=== PATIENT | female | born 1965 | race Caucasian/White ===

== ENCOUNTER 2023-12-21 16:52 | Outpatient (CLI) | payer MEDICAID ==
[2023-12-21 17:04] LABS: BASOPHILS # (AUTO) 0.1 10^3/uL (0.0-0.1); BASOPHILS % (AUTO) 0.8 %; EOSINOPHILS # (AUTO) 0.3 10^3/uL (0.0-0.7); EOSINOPHILS % (AUTO) 2.9 %; HCT - HEMATOCRIT 38.8 % (37.0-47.0); HGB - HEMOGLOBIN 12.5 g/dL (12.0-16.0); LYMPHOCYTES # (AUTO) 3.3 10^3/uL (1.5-3.5); MEAN CORPUSCULAR HEMOGLOBIN 29.1 pg (27.0-31.0); MEAN CORPUSCULAR HGB CONC 32.2 g/dL (32.0-36.0); MEAN CORPUSCULAR VOLUME 90.4 fL (81.0-99.0); MEAN PLATELET VOLUME 9.1 fL (7.9-10.8); MONOCYTES # (AUTO) 0.8 10^3/uL (0.0-1.0); MONOCYTES % (AUTO) 7.6 %; NEUTROPHILS # (AUTO) 5.9 10^3/uL (1.5-6.6); NEUTROPHILS % (AUTO) 56.5 %; PLT - PLATELET COUNT 317 10^3/uL (130-450); RED BLOOD COUNT 4.29 10^6/uL (4.20-5.40); RED CELL DISTRIBUTION WIDTH 16.9 % (12.0-15.0); WHITE BLOOD COUNT 10.4 x10^3/uL (4.8-10.8)
[2023-12-21 17:20] LABS: ALBUMIN 4.4 g/dL (3.2-5.5); ALBUMIN/GLOBULIN RATIO 1.3 (1.0-2.2); ALKALINE PHOSPHATASE 66 IU/L (42-121); ALT ALANINE AMINOTRANSFERASE 26 IU/L (10-60); AST ASPARTATE AMINOTRANSFERASE 35 IU/L (10-42); BILIRUBIN,TOTAL 0.7 mg/dL (0.2-1.0); BUN - BLOOD UREA NITROGEN 12 mg/dL (6-20); CALCIUM 10.1 mg/dL (8.5-10.3); CARBON DIOXIDE - CO2 30 mmol/L (21-32); CHLORIDE 103 mmol/L (101-111); CHOLESTEROL 129 mg/dL; CREATININE 0.9 mg/dL (0.6-1.3); GFR - MDRD 64 (>89); GLUCOSE 97 mg/dL (74-104); HDL CHOLESTEROL 65 mg/dL; LDL CHOLESTEROL,CALCULATED 53 mg/dL; LDL/HDL RATIO 0.8 (<4.4); POTASSIUM 4.2 mmol/L (3.5-4.5); SODIUM 139 mmol/L (135-145); TOTAL PROTEIN 7.8 g/dL (6.4-8.9); TRIGLYCERIDES 57 mg/dL (48-352); VLDL CHOLESTEROL 11 mg/dL
[2023-12-21 17:33] LABS: THYROID STIMULATING HORMONE 0.37 uIU/mL (0.34-5.60)
== END 2023-12-21 16:53 | disposition home or self-care (01) ==
LOC: LAB 16:52
PROVIDERS: ATTEND Nurse Practitioner Family
DX: R19.00 Intra-abdominal and pelvic swelling, mass and lump, unspecified site (principal); I25.810 Atherosclerosis of coronary artery bypass graft(s) without angina pectoris; E04.2 Nontoxic multinodular goiter
CPT/HCPCS: 36415; 80053; 80061; 83721; 84443; 85025

== ENCOUNTER 2023-12-29 12:06 | Emergency (ER) | payer MEDICAID ==
[2023-12-29 13:16] LABS: BASOPHILS # (AUTO) 0.1 10^3/uL (0.0-0.1); BASOPHILS % (AUTO) 0.6 %; EOSINOPHILS # (AUTO) 0.3 10^3/uL (0.0-0.7); EOSINOPHILS % (AUTO) 2.5 %; HCT - HEMATOCRIT 39.8 % (37.0-47.0); HGB - HEMOGLOBIN 12.4 g/dL (12.0-16.0); LYMPHOCYTES # (AUTO) 2.9 10^3/uL (1.5-3.5); LYMPHOCYTES % (AUTO) 23.6 %; MEAN CORPUSCULAR HEMOGLOBIN 28.2 pg (27.0-31.0); MEAN CORPUSCULAR HGB CONC 31.2 g/dL (32.0-36.0); MEAN CORPUSCULAR VOLUME 90.5 fL (81.0-99.0); MEAN PLATELET VOLUME 9.3 fL (7.9-10.8); MONOCYTES # (AUTO) 0.9 10^3/uL (0.0-1.0); MONOCYTES % (AUTO) 7.1 %; NEUTROPHILS # (AUTO) 8.1 10^3/uL (1.5-6.6); PLT - PLATELET COUNT 310 10^3/uL (130-450); RED CELL DISTRIBUTION WIDTH 17.2 % (12.0-15.0); WHITE BLOOD COUNT 12.3 x10^3/uL (4.8-10.8)
--- NOTE | 2023-12-29 13:16 | ED Physician Documentation ---
PD HPI CHEST PAIN - Stated complaint Stated Complaint: AFIB - Chief complaint Chief Complaint: Cardiac - History obtained from History obtained from: Patient - Additional information Additional information: This is a 58-year-old female who has a past medical history of syncopal episodes for which she ultimately got a pacemaker placed while she was in the [place] in June 2023. She reported they had at cardiac catheterization at that time that was reassuring. She had been doing well and moved back to the [facility] recently, establish care with cardiology at [facility] and she saw them a few weeks ago. She presents today with a couple days of increasing dyspnea, mostly on exertion like when she is going upstairs. She is on Eliquis, and reports a past medical history of atrial fibrillation. She has not had any chest pain, no fever, no increased cough or sputum production, no increasing lower extremity swelling or weight gain. She does note that she ran out of her Lasix a couple of days ago. As she does not have any underlying lung disease to her knowledge, does not use inhalers or oxygen at home. Review of Systems Constitutional: reports: Reviewed and negative Eyes: reports: Reviewed and negative Ears: reports: Reviewed and negative Nose: reports: Reviewed and negative Throat: reports: Reviewed and negative Cardiac: reports: Reviewed and negative Respiratory: reports: Dyspnea GI: reports: Reviewed and negative : reports: Reviewed and negative Skin: reports: Reviewed and negative Musculoskeletal: reports: Reviewed and negative Neurologic: reports: Reviewed and negative PD PAST MEDICAL HISTORY - Past Medical History Past Medical History: Yes Cardiovascular: Congestive heart failure, Atrial fibrillation Respiratory: Asthma - Past Surgical History Past Surgical History: Yes Cardiovascular: Pacemaker, Other - Present Medications Home Medications: Ambulatory Orders Medication Instructions Recorded Confirmed Amox/Clav 875/125 [Augmentin 1 tablet PO Q12H 5 Days #10 tablet 12/29/23 875/125 Tab] Azithromycin [Zithromax] 250 mg PO UD 5 Days #6 tablet 12/29/23 Furosemide [Lasix] 20 mg PO DAILY #30 tablet 12/29/23 - Allergies Allergies/Adverse Reactions: Allergies Allergy/AdvReac Type Severity Reaction Status Date / Time codeine AdvReac Headache Verified 12/29/23 12:17 - Social History Does the pt smoke?: No Smoking Status: Never smoker Does the pt drink ETOH?: Yes ETOH Use: Wine PD ED PE NORMAL - Vitals Vital signs reviewed: Yes - General General: Alert and oriented X 3, No acute distress, Well developed/nourished - HEENT HEENT: Atraumatic, Moist mucous membranes, Pharynx benign - Neck Neck: Supple, no meningeal sign, No JVD - Cardiac Cardiac: RRR, No murmur, No gallop, No rub, Strong equal pulses - Respiratory Respiratory: No respiratory distress, Clear bilaterally - Abdomen Abdomen: Normal bowel sounds, Soft, Non tender, Non distended - Extremities Extremities: No deformity, No tenderness to palpate, Normal ROM s pain, No edema, No calf tenderness / cord - Neuro Neuro: Alert and oriented X 3 Eye Opening: Spontaneous Motor: Obeys Commands Verbal: Oriented GCS Score: 15 Results - Vitals Vitals: Vital Signs - 24 hr 12/29/23 12/29/23 12:11 15:17 Temperature 36.1 C L Heart Rate 92 91 Respiratory 20 18 Rate Blood Pressure 146/99 H 119/65 O2 Saturation 98 100 Oxygen O2 Source Room air - Labs Labs: Laboratory Tests 12/29/23 12/29/23 12/29/23 13:07 13:08 13:08 WBC 12.3 H RBC 4.40 Hgb 12.4 Hct 39.8 MCV 90.5 MCH 28.2 MCHC 31.2 L RDW 17.2 H Plt Count 310 MPV 9.3 Neut # (Auto) 8.1 H Lymph # (Auto) 2.9 [place] # (Auto) 0.9 Eos # (Auto) 0.3 Baso # (Auto) 0.1 Absolute Nucleated RBC 0.00 Nucleated RBC % 0.0 Sodium 140 Potassium 3.7 Chloride 106 Carbon Dioxide 25 Anion Gap 9.0 BUN 12 Creatinine 0.9 Estimated GFR (MDRD) 64 L Glucose 120 H Calcium 10.0 Magnesium 1.7 Total Bilirubin 1.0 AST 22 ALT 28 Alkaline Phosphatase 68 Troponin I High Sens 20.1 H* B-Natriuretic Peptide 441 H Total Protein 7.3 Albumin 4.3 Globulin 3.0 Albumin/Globulin Ratio 1.4 Lipase 22 12/29/23 14:19 WBC RBC Hgb Hct MCV MCH MCHC RDW Plt Count MPV Neut # (Auto) Lymph # (Auto) [place] # (Auto) Eos # (Auto) Baso # (Auto) Absolute Nucleated RBC Nucleated RBC % Sodium Potassium Chloride Carbon Dioxide Anion Gap BUN Creatinine Estimated GFR (MDRD) Glucose Calcium Magnesium Total Bilirubin AST ALT Alkaline Phosphatase Troponin I High Sens 17.2 H* B-Natriuretic Peptide Total Protein Albumin Globulin Albumin/Globulin Ratio Lipase - Rads (name of study) No standard instances Relevant Findings:: Final report received PD Medical Decision Making - ED course Complexity details: reviewed old records, reviewed results, re-evaluated patient, considered differential, d/w patient ED course: 58-year-old female with past medical history is as above presented with dyspnea on exertion over the last couple of days, no chest pain. She does have a history of A-fib and a pacemaker, compliant with her Eliquis but ran out of her Lasix for the last couple of days. She is well-appearing here on physical exam, nontoxic afebrile and oxygenating well on room air. Her lungs sound clear, chest x-ray does show a right pleural effusion and possible consolidation, labs are generally stable, initial high-sensitivity troponin was around 20 which patient states is common for her to be slightly elevated, repeat was 17. Low suspicion for PE as patient is on Eliquis. No findings of acute ACS on her EKG. Suspected symptoms are secondary to being out of her Lasix for a couple of days and having a small pleural effusion. We therefore gave her 20 mg of IV Lasix here and I have restarted her Lasix outpatient as she states she ran out of her prescription and is unsure if her PCP has refilled it. As it is unclear if there is also underlying consolidation I am going to treat her for possible community-acquired pneumonia as well given her comorbidities as I have treated her with both Augmentin and azithromycin. She does not have a fever however and I think this is less likely pneumonia but patient was advised if she develops a fever, increasing shortness of breath, chest pain or new concerns to return to the ER. 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 Departure - Departure Disposition: Home, Self Care Clinical Impression: Pleural effusion, right Condition: Good Instructions: ED Chest Pain NonCardiac, ED Effusion Pleural Prescriptions: Amox/Clav 875/125 [Augmentin 875/125 Tab] 1 tablet PO Q12H 5 Days #10 tablet Furosemide [Lasix] 20 mg PO DAILY #30 tablet Azithromycin [Zithromax] 250 mg PO UD 5 Days #6 tablet Comments: As we discussed, I think your shortness of breath is likely due to mild fluid accumulation in your lungs after missing some days of furosemide. I am treating you for a possible pneumonia as well. Please restart your furosemide, I wrote for a temporary refill but you will need your regular refill from your primary care provider. I tried to call the clinic but nobody answered the phone. If you have any worsening symptoms, please return to the ER. I also recommend that you follow-up with your line department supervisor within the next couple of weeks. Forms: PCP List Discharge Date/Time: 12/29/23 15:38
[2023-12-29 13:29] LABS: MAGNESIUM 1.7 mg/dL (1.7-2.3)
--- NOTE | 2023-12-29 13:30 | XRAY Report ---
PROCEDURE: Chest 1V INDICATIONS: Chest pain TECHNIQUE: One view of the chest was acquired. COMPARISON: None. FINDINGS: Surgical changes and devices: The patient is status post median sternotomy and dual-lead cardiac pac emaker placement. Lungs and pleura: There is likely a small right pleural effusion and atelectasis or consolidation at the right lung base. Mediastinum: Mediastinal contours appear normal. Heart size is normal. Bones and chest wall: No suspicious bony lesions. Overlying soft tissues appear unremarkable. IMPRESSION: Right pleural effusion and basilar atelectasis or consolidation. Short interval follow-up is recommen ded to ensure resolution of this finding. Reviewed by: Selene Alexis MD on 12/29/2023 1:28 PM PDT Approved by: Selene Alexis MD on 12/29/2023 1:28 PM PDT Station ID: [id number]
[2023-12-29 13:35] LABS: ALBUMIN 4.3 g/dL (3.2-5.5); ALBUMIN/GLOBULIN RATIO 1.4 (1.0-2.2); CREATININE 0.9 mg/dL (0.6-1.3); POTASSIUM 3.7 mmol/L (3.5-4.5); TOTAL PROTEIN 7.3 g/dL (6.4-8.9)
[2023-12-29 13:41] LABS: TROPONIN I HIGH SENSITIVITY 20.1 ng/L (2.3-14.8)
[2023-12-29] MEDS: FUROSEMIDE 20 MG/2 ML VIAL IVP STA (15:14)
[2023-12-29 15:27] VITALS: BP 119/65; O2SAT 100
== END 2023-12-29 15:38 | disposition home or self-care (01) ==
LOC: ED 12:06
DX: J90 Pleural effusion, not elsewhere classified (principal); I48.91 Unspecified atrial fibrillation; Z79.01 Long term (current) use of anticoagulants; Z95.0 Presence of cardiac pacemaker; T50.1X6A Underdosing of loop [high-ceiling] diuretics, initial encounter; Z76.0 Encounter for issue of repeat prescription
CPT/HCPCS: 36415; 80053; 83690; 83735; 83880; 84484; 85025; 93005; 96374; 99284

== ENCOUNTER 2024-01-29 07:55 | Outpatient (CLI) | payer MEDICAID ==
--- NOTE | 2024-01-29 16:37 | Ultrasound Report ---
PROCEDURE: Abdomen Complete INDICATIONS: ABD LUMP TECHNIQUE: Real-time scanning was performed of the abdominal and retroperitoneal organs, with image documentatio n. COMPARISON: None. FINDINGS: Liver: Liver is normal in size and homogeneous in echotexture. Main portal vein measures 1 cm, slig htly prominent. Gallbladder: Surgically absent Biliary ducts: Extrahepatic bile duct caliber measures 4mm. Normal is 6-7 mm or less in diameter, o r 10 mm or less post-cholecystectomy. Pancreas: Visualized portions of the pancreas are sonographically normal. Spleen: Surgically absent Kidneys: Left kidney is not well-visualized. Kidneys are otherwise normal in size and echotexture. Right kidney measures 11.3 cm long; left kidney measures 8.7 cm long. No hydronephrosis or nephrolit hiasis. No solid masses. No complex renal cystic lesions which require follow-up. Aorta: Visualized aorta is normal in caliber at less than 3 cm. Iliacs: Proximal common iliac arteries are normal in caliber at less than 2.5 cm. IVC: Intrahepatic inferior vena cava is patent. Miscellaneous: No free abdominal fluid. In the region of the lump palpable to the right of the umbil icus, a cystic area is identified at may be communicating with the umbilicus. No solid mass can be id entified. The cystic lesion measures approximately 6.8 cm in length. IMPRESSION: 1. In the region of the lump palpable to the right of the umbilicus, cystic lesion is seen. If indica trena, contrast enhanced CT of the abdomen and pelvis may provide additional diagnostic benefit 2. Prominent vessels within the liver. This is of unknown, if any, clinical significance. Reviewed by: Joel Wheeler MD on 01/29/2024 4:36 PM PDT Approved by: Joel Wheeler MD on 01/29/2024 4:36 PM PDT Station ID: [id number]
--- NOTE | 2024-01-29 21:18 | Ultrasound Report ---
PROCEDURE: Soft Tissue Head or Neck INDICATIONS: ABD LUMP, THYROID NODULES TECHNIQUE: Real-time scanning was performed of the thyroid gland, with image documentation. COMPARISON: None FINDINGS: Right: Thyroid lobe measures 2.3 x 1.2 x 0.9 cm. Left: Thyroid lobe measures 3.1 x 1.9 x 0.7 cm Isthmus: 0.13 cm thick. Echotexture: Homogeneous. Nodule number: One Location: Left Size: 1.3 x 1.7 x 1.2 cm. Composition: Solid. Echogenicity: Hyperechoic. Shape: wider than tall (0 points). Margins: Smooth (0 points). Echogenic foci: None. Total points: 3 ACR TI-RADS category: 3 Nodule number: 2 Location: Left Size: 2.0 x 1.2 x 1.7 cm. Composition: Predominantly cystic. Echogenicity: Hypoechoic. Shape: wider than tall (0 points). Margins: Smooth (0 points). Echogenic foci: None (0 points). Total points: 3 ACR TI-RADS category: 3 Nodule number: Three Location: Isthmus Size: 0.6 x 0.5 x 0.8 cm. Composition: Spongiform. Echogenicity: Hypoechoic. Shape: wider than tall (0 points). Margins: Smooth (0 points). Echogenic foci: None (0 points). Total points: 2 ACR TI-RADS category: TI-RADS 2: Not suspicious. Nodule number: Four Location: Right Size: 0.8 x 0.8 x 0.6 cm. Composition: Solid. Echogenicity: Hypoechoic. Shape: wider than tall (0 points). Margins: Smooth (0 points). Echogenic foci: None (0 points). Total points: 3 ACR TI-RADS category: 3 IMPRESSION: Mildly suspicious nodules 1 and 2 ACR guidelines recommend follow-up studies for 5 years at year 1, 3 and 5 ACR TI-RADS definitions and recommendations: TI-RADS 1 (benign): 0 points. FNA not needed. TI-RADS 2 (not suspicious): 2 points. FNA not needed. TI-RADS 3 (mildly suspicious): 3 points. "FNA if 2.5 cm or larger, follow up if 1.5 cm or larger (at 1, 3, and 5 years). TI-RADS 4 (moderately suspicious): 4-6 points. "FNA if 1.5 cm or larger, follow up if 1 cm or larger (at 1, 2, 3, and 5 years). TI-RADS 5 (highly suspicious): 7 points or more. "FNA if 1 cm or larger, follow up if 0.5 cm or larger (every year for 5 years). Reviewed by: Lul Steele MD on 01/29/2024 8:17 PM AKMARCIANO Approved by: Lul Steele MD on 01/29/2024 8:17 PM AKMARCIANO Station ID: [id number]
== END 2024-01-29 07:56 | disposition home or self-care (01) ==
LOC: DI 07:55
PROVIDERS: ATTEND Nurse Practitioner Family
DX: R19.00 Intra-abdominal and pelvic swelling, mass and lump, unspecified site (principal); E04.2 Nontoxic multinodular goiter; R93.2 Abnormal findings on diagnostic imaging of liver and biliary tract

== ENCOUNTER 2024-01-29 07:56 | Outpatient (CLI) | payer MEDICAID ==
--- NOTE | 2024-02-06 09:19 | CT Report ---
PROCEDURE: Chest WO INDICATIONS: LUNG NODULES TECHNIQUE: A CT scan of the chest was performed. Intravenous contrast media was not administered. Images were re corded and evaluated at appropriate window settings. Reformats: axial MIP of the chest, coronal and s agittal. For radiation dose reduction, the following was used: automated exposure control, adjustment of mA and/or kV according to patient size. COMPARISON: No prior CT available for comparison. Previous CT study from [place] was not able to be obtained despite numerous attempts after 5 days. Therefore evaluation is limited FINDINGS: Image quality: Diagnostic. Chest wall and lower neck: Thyroid poorly evaluated due to streak artifact from this defibrillator/pa cemaker in the left chest. Suggestion of thyroid nodule however thyroid ultrasound was performed on . No axillary or supraclavicular adenopathy by size although study is limited with no IV contr ast. Median sternotomy wires present. Left chest pacemaker present with 2 leads in the heart. Lungs and pleura: Areas of scarring and consolidation seen especially left upper lobe, bilateral sita hilar regions. Tiny right pleural effusion is identified. No pneumothorax. Mediastinum: Slight cardiomegaly No pericardial effusion. No large vessel abnormality. Prominent medi astinal nodes with abnormal morphology measuring 1 cm in short axis. Surgical clips in the anterior m ediastinum. Calcified lesion in the anterior mediastinum may represent granulomatous disease versus c alcified enlarged lymph node Bones: No aggressive osseous abnormality. Upper Abdomen: Prominence/thickening of the mid esophagus. If indicated, endoscopy may further evalua te. Small hiatal hernia. Evaluation of viscera is limited especially with no IV contrast. Numerous horta rgical clips of the region of the left diaphragm identified. IMPRESSION: 1. Abnormal CT chest with areas of pulmonary and bilateral hilar consolidations and scarring that may represent treated or active neoplasia, prior radiation therapy, sarcoid, granulomatous disease, pneu monia. No prior study available for comparison limiting evaluation. Tiny right pleural effusion prese nt 2. Enlarged mediastinal lymph nodes. Heavily calcified enlarged lymph nodes in the mediastinum may re present prior treated neoplastic disease. Differential diagnosis includes [granulomatous disease, iraj coid. 3. Suggestion of subtle thickening of the midesophagus; if not already done so, endoscopy may further evaluate Reviewed by: Joel Wheeler MD on 02/06/2024 9:17 AM PDT Approved by: Joel Wheeler MD on 02/06/2024 9:17 AM PDT Station ID: [id number]
== END 2024-01-29 07:57 | disposition home or self-care (01) ==
LOC: DI 07:56
PROVIDERS: ATTEND Nurse Practitioner Family
DX: R91.8 Other nonspecific abnormal finding of lung field (principal); J90 Pleural effusion, not elsewhere classified; R59.0 Localized enlarged lymph nodes; R19.00 Intra-abdominal and pelvic swelling, mass and lump, unspecified site; E04.2 Nontoxic multinodular goiter; R93.2 Abnormal findings on diagnostic imaging of liver and biliary tract

== ENCOUNTER 2024-01-29 07:56 | Outpatient (CLI) | payer MEDICAID ==
--- NOTE | 2024-01-30 09:03 | Mammography Report ---
BILATERAL DIGITAL SCREENING MAMMOGRAM 3D/2D: 01/29/2024 CLINICAL: Routine screening. Comparison is made to exam dated: 04/30/2012 mammogram - [facility]. There are scattered areas of fibroglandular density in both breasts (category b / 25%-50% glandular t issue). No significant masses, calcifications, or other findings are seen in either breast. There has been no significant interval change. IMPRESSION: NEGATIVE There is no mammographic evidence of malignancy. A 1 year screening mammogram is recommended. Based on the Tyrer Cuzick model (a risk assessment model) the patient's lifetime risk is 6.6% and her 10 year risk is 2.5%. According to the ACR, ACS, and NCCN guidelines, an annual breast MRI exam tania g with mammogram is recommended if the patient's lifetime risk is 20% or greater. This exam was interpreted at Station ID: [id number]. NOTE: For mammograms, a report in lay terms will be sent to the patient. Approximately 15% of breast malignancies will not be visualized mammographically. In the management of a palpable breast mass, a negative mammogram must not discourage biopsy of a clinically suspicious lesion. Electronically Signed By: Roman Bradley M.D. [email or web address]/[email or web address]:01/29/2024 16:17:48 letter sent: No_Letter ACR BI-RADS Category 1: Negative 3341F PARENCHYMAL PATTERN: (A) - The breast(s) demonstrate(s) scattered fibroglandular densities. BI-RADS CATEGORY: (1) - 1 RECOMMENDATION: (ANNUAL) - Recommend routine annual screening mammography. [id number] 1 year screening LATERALITY: (B)
== END 2024-01-29 07:57 | disposition home or self-care (01) ==
LOC: DI 07:56
PROVIDERS: ATTEND Nurse Practitioner Family
DX: Z12.31 Encounter for screening mammogram for malignant neoplasm of breast (principal); R92.323 Mammographic fibroglandular density, bilateral breasts

== ENCOUNTER 2024-02-06 09:26 | Outpatient (CLI) | payer MEDICAID ==
[2024-02-06 09:36] LABS: BASOPHILS # (AUTO) 0.1 10^3/uL (0.0-0.1); BASOPHILS % (AUTO) 0.8 %; EOSINOPHILS # (AUTO) 0.3 10^3/uL (0.0-0.7); EOSINOPHILS % (AUTO) 2.8 %; HGB - HEMOGLOBIN 11.7 g/dL (12.0-16.0); LYMPHOCYTES # (AUTO) 2.8 10^3/uL (1.5-3.5); MEAN CORPUSCULAR HGB CONC 31.6 g/dL (32.0-36.0); MEAN CORPUSCULAR VOLUME 91.6 fL (81.0-99.0); MEAN PLATELET VOLUME 9.2 fL (7.9-10.8); MONOCYTES # (AUTO) 0.8 10^3/uL (0.0-1.0); MONOCYTES % (AUTO) 8.5 %; NEUTROPHILS # (AUTO) 5.2 10^3/uL (1.5-6.6); NEUTROPHILS % (AUTO) 56.8 %; PLT - PLATELET COUNT 298 10^3/uL (130-450); RED BLOOD COUNT 4.04 10^6/uL (4.20-5.40); RED CELL DISTRIBUTION WIDTH 15.9 % (12.0-15.0); WHITE BLOOD COUNT 9.1 x10^3/uL (4.8-10.8)
[2024-02-06 09:53] LABS: ALBUMIN/GLOBULIN RATIO 1.1 (1.0-2.2); ALKALINE PHOSPHATASE 69 IU/L (42-121); ALT ALANINE AMINOTRANSFERASE 14 IU/L (10-60); AST ASPARTATE AMINOTRANSFERASE 17 IU/L (10-42); BUN - BLOOD UREA NITROGEN 17 mg/dL (6-20); CALCIUM 9.7 mg/dL (8.5-10.3); CARBON DIOXIDE - CO2 28 mmol/L (21-32); CHLORIDE 103 mmol/L (101-111); CHOL/HDL RATIO 2.3 (<4.4); CHOLESTEROL 110 mg/dL; CREATININE 0.9 mg/dL (0.6-1.3); GFR - MDRD 64 (>89); GLUCOSE 95 mg/dL (74-104); HDL CHOLESTEROL 47 mg/dL; LDL CHOLESTEROL,CALCULATED 52 mg/dL; LDL/HDL RATIO 1.1 (<4.4); POTASSIUM 3.9 mmol/L (3.5-4.5); SODIUM 137 mmol/L (135-145); TOTAL PROTEIN 7.6 g/dL (6.4-8.9); TRIGLYCERIDES 54 mg/dL; VLDL CHOLESTEROL 11 mg/dL
== END 2024-02-06 09:27 | disposition home or self-care (01) ==
LOC: LAB 09:26
PROVIDERS: ATTEND Internal Medicine Cardiovascular Disease
DX: I25.10 Atherosclerotic heart disease of native coronary artery without angina pectoris (principal); E78.2 Mixed hyperlipidemia; R07.9 Chest pain, unspecified
CPT/HCPCS: 36415; 80053; 80061; 83721; 85025

== ENCOUNTER 2024-02-20 12:29 | Emergency (ER) | payer MEDICAID ==
--- NOTE | 2024-02-20 13:18 | ED Physician Documentation ---
PD HPI CHEST PAIN - Stated complaint Stated Complaint: SOA,CHEST PRESSURE - Chief complaint Chief Complaint: Cardiac - Additional information Additional information: 58-year-old female with history of pacemaker and heart cath in 2022 at as well as CABG in 2019, triple bypass. Patient was seen here couple days ago for similar symptoms chest x-ray showed pleural effusions. Patient says that she is having increased shortness of breath with chest tightness for the last 2 to 3 days she said that she has been trying to ignore it but it has been getting worse in the evenings and worse with any sort of exertional activity. 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 She does have history of A-fib she is currently anticoagulated on Eliquis No recent missed doses. She was recently decreased on her furosemide for hypertension about 2 weeks ago from her primary care provider Bri Altamirano. Denies any unilateral leg pain or swelling.No dizziness no recent fevers or chills. PD PAST MEDICAL HISTORY - Past Medical History Past Medical History: Yes Cardiovascular: Congestive heart failure, Atrial fibrillation Respiratory: Asthma - Past Surgical History Past Surgical History: Yes Cardiovascular: Pacemaker, Other - Present Medications Home Medications: Ambulatory Orders Medication Instructions Recorded Confirmed Amox/Clav 875/125 [Augmentin 1 tablet PO Q12H 5 Days #10 tablet 12/29/23 875/125 Tab] Azithromycin [Zithromax] 250 mg PO UD 5 Days #6 tablet 12/29/23 Furosemide [Lasix] 20 mg PO DAILY #30 tablet 12/29/23 - Allergies Allergies/Adverse Reactions: Allergies Allergy/AdvReac Type Severity Reaction Status Date / Time codeine AdvReac Headache Verified 02/20/24 12:55 - Social History Does the pt smoke?: No Smoking Status: Never smoker Does the pt drink ETOH?: Yes Does the pt have substance abuse?: No - Immunizations Immunizations are current?: Yes - POLST Patient has POLST: No PD ED PE NORMAL - Vitals Vital signs reviewed: Yes - General General: Alert and oriented X 3, No acute distress, Well developed/nourished - HEENT HEENT: Atraumatic, PERRL - Cardiac Cardiac: No murmur, Strong equal pulses, Other (Pacemaker) - Respiratory Respiratory: Other (bilateral wheezing) - Back Back: No CVA TTP - Derm Derm: Normal color, Warm and dry, No rash - Extremities Extremities: No deformity, No edema, No calf tenderness / cord - Neuro Neuro: Alert and oriented X 3, bowl attendant 2-12 intact, No motor deficit, No sensory deficit, Normal speech Eye Opening: Spontaneous Motor: Obeys Commands Verbal: Oriented GCS Score: 15 - Psych Psych: Normal mood Results - Vitals Vitals: Vital Signs - 24 hr 02/20/24 02/20/24 02/20/24 12:47 15:44 17:10 Temperature 36.5 C Heart Rate 90 91 102 H Respiratory 19 22 17 Rate Blood Pressure 136/80 H 137/76 H 136/86 H O2 Saturation 100 97 99 02/20/24 02/20/24 19:00 20:28 Temperature Heart Rate 96 103 H Respiratory 20 20 Rate Blood Pressure 121/71 123/73 O2 Saturation 98 96 Oxygen O2 Source Room air - EKG (time done) 1313 EKG releavant findings:: EKG personally interpreted by author of this note. Relevant findings are: Rate: Rate (enter#) (86) Rhythm: Paced, Other (V Paced) [place]: Normal QRS: Normal Computer interpretation: Agree with computer - Labs Labs: Laboratory Tests 02/20/24 02/20/24 02/20/24 13:21 13:21 13:21 WBC 11.8 H RBC 4.10 L Hgb 11.8 L Hct 37.7 MCV 92.0 MCH 28.8 MCHC 31.3 L RDW 15.1 H Plt Count 312 MPV 9.4 Neut # (Auto) 8.1 H Lymph # (Auto) 2.4 [place] # (Auto) 0.9 Eos # (Auto) 0.3 Baso # (Auto) 0.1 Absolute Nucleated RBC 0.00 Nucleated RBC % 0.0 APTT 32.6 Sodium 140 Potassium 3.9 Chloride 106 Carbon Dioxide 28 Anion Gap 6.0 BUN 13 Creatinine 0.8 Estimated GFR (MDRD) 73 L Glucose 91 Calcium 9.9 Magnesium Total Bilirubin 0.9 AST 23 ALT 23 Alkaline Phosphatase 68 Troponin I High Sens 5.6 Total Protein 7.4 Albumin 4.2 Globulin 3.2 Albumin/Globulin Ratio 1.3 Lipase 22 02/20/24 13:21 WBC RBC Hgb Hct MCV MCH MCHC RDW Plt Count MPV Neut # (Auto) Lymph # (Auto) [place] # (Auto) Eos # (Auto) Baso # (Auto) Absolute Nucleated RBC Nucleated RBC % APTT Sodium Potassium Chloride Carbon Dioxide Anion Gap BUN Creatinine Estimated GFR (MDRD) Glucose Calcium Magnesium 1.5 L Total Bilirubin AST ALT Alkaline Phosphatase Troponin I High Sens Total Protein Albumin Globulin Albumin/Globulin Ratio Lipase - Rads (name of study) Chest x-ray Relevant Findings:: Final report received, EMP independent interpretation of test, Other (Mild bibasilar opacities and small effusions) PD Medical Decision Making - ED course ED course: 58-year-old female presents emergency department for chest pain that sounds like unstable angina. 1615: Spoke with on-call ad writer Dr. Brown with [facility] who agrees that patient should be transferred for heart cath due to unstable angina and reque sted we start her on heparin drip and 40 mg of out of Atorvastatin. Transfer center is working on looking what bed availability they have. Labs have been complete while she has been here she does not have any troponin leak, white count slightly elevated 11.8, normal electrolytes. Spoke with [facility] hospitalist Dr. Boss Who has agreed to accept the patient for heart cath. She has been started on heparin drip here in the emergency department she will be transferred via ALS for heart cath to [facility] for unstable angina. Departure - Departure Disposition: 02 Transfer Acute Care Hosp Clinical Impression: Unstable angina Forms: PCP List
[2024-02-20 13:26] LABS: BASOPHILS # (AUTO) 0.1 10^3/uL (0.0-0.1); BASOPHILS % (AUTO) 0.6 %; EOSINOPHILS # (AUTO) 0.3 10^3/uL (0.0-0.7); EOSINOPHILS % (AUTO) 2.5 %; HCT - HEMATOCRIT 37.7 % (37.0-47.0); HGB - HEMOGLOBIN 11.8 g/dL (12.0-16.0); LYMPHOCYTES # (AUTO) 2.4 10^3/uL (1.5-3.5); LYMPHOCYTES % (AUTO) 20.2 %; MEAN CORPUSCULAR HEMOGLOBIN 28.8 pg (27.0-31.0); MEAN CORPUSCULAR HGB CONC 31.3 g/dL (32.0-36.0); MEAN PLATELET VOLUME 9.4 fL (7.9-10.8); MONOCYTES # (AUTO) 0.9 10^3/uL (0.0-1.0); MONOCYTES % (AUTO) 7.6 %; NEUTROPHILS # (AUTO) 8.1 10^3/uL (1.5-6.6); NEUTROPHILS % (AUTO) 68.9 %; PLT - PLATELET COUNT 312 10^3/uL (130-450); RED CELL DISTRIBUTION WIDTH 15.1 % (12.0-15.0); WHITE BLOOD COUNT 11.8 x10^3/uL (4.8-10.8)
--- NOTE | 2024-02-20 13:40 | XRAY Report ---
PROCEDURE: Chest 1V INDICATIONS: Chest pain TECHNIQUE: One view of the chest was acquired. COMPARISON: 01/29/2024 FINDINGS: Surgical changes and devices: Left chest wall pulse generator with electrode leads. Sternal postsurg ical changes. Sternotomy wires. Lungs and pleura: Mild to moderate bibasilar opacities. Small effusions are seen bilaterally. Mediastinum: Heart size is within normal limits Bones and chest wall: Degenerative changes IMPRESSION: Mild bibasilar opacities and small effusions are present. Consider future imaging surveillance to assess for resolution. Reviewed by: Rigoberto Feldman MD on 02/20/2024 1:39 PM PDT Approved by: Rigoberto Feldman MD on 02/20/2024 1:39 PM PDT Station ID: [id number]
[2024-02-20 13:43] LABS: ALBUMIN 4.2 g/dL (3.2-5.5); ALBUMIN/GLOBULIN RATIO 1.3 (1.0-2.2); BILIRUBIN,TOTAL 0.9 mg/dL (0.2-1.0); CALCIUM 9.9 mg/dL (8.5-10.3); CREATININE 0.8 mg/dL (0.6-1.3); POTASSIUM 3.9 mmol/L (3.5-4.5); TOTAL PROTEIN 7.4 g/dL (6.4-8.9)
[2024-02-20 13:46] LABS: TROPONIN I HIGH SENSITIVITY 5.6 ng/L (2.3-14.8)
[2024-02-20] MEDS: ATORVASTATIN 40 MG TABLET PO STA (17:02)
[2024-02-20] MEDS: HEPARIN 25000UNITS/500ML (D5W) 25,000 UNIT/500 ML BAG IV SCH (17:02)
[2024-02-20] MEDS: ASPIRIN CHEW 81 MG TABLET PO STA (17:03)
[2024-02-20 20:35] VITALS: BP 123/73; O2SAT 96
== END 2024-02-20 21:05 | disposition short-term general hospital (02) ==
LOC: ED 12:29
DX: I20.0 Unstable angina (principal); I50.9 Heart failure, unspecified; I48.91 Unspecified atrial fibrillation; Z95.0 Presence of cardiac pacemaker; Z95.1 Presence of aortocoronary bypass graft; Z79.899 Other long term (current) drug therapy
CPT/HCPCS: 36415; 71045; 80053; 83690; 83735; 84484; 85025; 85730; 93005; 99285; A9270

== ENCOUNTER 2024-04-04 07:26 | Day surgery (SDC) | payer MEDICAID ==
[2024-04-04] MEDS: LACTATED RINGERS 1,000 ML IV ONE (07:31)
--- NOTE | 2024-04-04 09:11 | ANESTHESIA ---
Pre-Anesthesia VS, & Labs - Diagnosis esophogeal thickening - Procedure EGD Vital Signs: Temp Pulse Resp BP Pulse Ox O2 Flow Rate 36 C L 78 18 116/76 98 04/04/24 07:31 04/04/24 07:31 04/04/24 07:31 04/04/24 07:31 04/04/24 07:31 Height: 5 ft 1 in Weight (kg): 69 kg Body Mass Index: 28.7 BMI Classification: Overweight - NPO >8 hours - Is Patient ?: No Home Medications and Allergies Home Medications: Ambulatory Orders Acetaminophen [Tylenol] 650 mg PO Q6H PRN 03/26/24 Albuterol Sulf [Ventolin Hfa Inhaler] 1 - 2 puffs INH Q4HR PRN 03/26/24 Apixaban [Eliquis] 5 mg PO BID 03/26/24 Flecainide [Tambocar] 100 mg PO ONCE PRN 03/26/24 Fluticasone Propion/Salmeterol [Wixela 500-50 Inhub] 1 each IH BID 03/26/24 LORazepam [Ativan] 0.5 mg PO Q6H PRN 03/26/24 Levothyroxine [Synthroid] 75 mcg PO QDAC 03/26/24 Midodrine HCl 5 mg PO TID 03/26/24 Omeprazole 20 mg PO DAILY 03/26/24 Rosuvastatin Calcium 10 mg PO DAILY 03/26/24 Zolpidem Tartrate [Ambien] 10 mg PO QPM PRN 03/26/24 bisoproloL fumarate [Bisoprolol Fumarate] 1.25 mg PO BID 03/26/24 Acetaminophen [Tylenol] 650 mg PO Q6H PRN 03/26/24 Albuterol Sulf [Ventolin Hfa Inhaler] 1 - 2 puffs INH Q4HR PRN 03/26/24 Apixaban [Eliquis] 5 mg PO BID 03/26/24 Flecainide [Tambocar] 100 mg PO ONCE PRN 03/26/24 Fluticasone Propion/Salmeterol [Wixela 500-50 Inhub] 1 each IH BID 03/26/24 LORazepam [Ativan] 0.5 mg PO Q6H PRN 03/26/24 Levothyroxine [Synthroid] 75 mcg PO QDAC 03/26/24 Midodrine HCl 5 mg PO TID 03/26/24 Omeprazole 20 mg PO DAILY 03/26/24 Rosuvastatin Calcium 10 mg PO DAILY 03/26/24 Zolpidem Tartrate [Ambien] 10 mg PO QPM PRN 03/26/24 bisoproloL fumarate [Bisoprolol Fumarate] 1.25 mg PO BID 03/26/24 Allergies/Adverse Reactions: Allergies Allergy/AdvReac Type Severity Reaction Status Date / Time adhesive Allergy Rash Verified 03/26/24 11:46 codeine Allergy Respiratory Verified 03/26/24 11:46 Anes History & Medical History - Anesthetic History Anesthesia Complications: reports: No previous complications Family history of Anesthesia Complications: Denies Family history of Malignant Hyperthermia: Denies - Medical History Cardiovascular: reports: Coronary artery disease, [place], Atrial fibrillation, Other Pulmonary: reports: Asthma, Shortness of breath, Other (B pleural effusions) Gastrointestinal: reports: GERD, Chronic constipation Urinary: reports: None Musculoskeletal: reports: None Endocrine/Autoimmune: reports: Other Smoking Status: Never smoker History of Cancer?: Yes Other Past Medical History: METS<4 - Surgical History General: reports: Cholecystectomy, Colonoscopy, EGD, Other Cardiothoracic: reports: CABG, Pacemaker Exam General: Alert, Oriented x3, Cooperative Dental: WNL Mouth Openin Fingerbreadth Neck Mobility: Normal Mallampati classification: II Thyromental Distance: 4-6 cm Respiratory: Decreased breath sounds Cardiovascular: Other (V paced) Plan Anesthesia Type: General, Total IV Consent for Procedure(s) Verified and Reviewed: Yes Code Status: Attempt Resuscitation ASA classification: 4-Incapacitating disease Is this case an emergency?: No
[2024-04-04] MEDS ORDERED: MIDAZOLAM 2 MG/2 ML VIAL ONE (09:20)
[2024-04-04] MEDS ORDERED: PROPOFOL 200 MG/20 ML VIAL IVP ONE (09:20)
[2024-04-04] MEDS ORDERED: fentaNYL 100 MCG/2 ML VIAL ONE (09:23)
[2024-04-04] MEDS ORDERED: LIDOCAINE-MPF 2% 5 ML VIAL ONE (09:30)
[2024-04-04] MEDS: LACTATED RINGERS 600 ML IV ONE (09:55)
[2024-04-04 10:27] VITALS: O2SAT 99
[2024-04-04 10:51] VITALS: BP 111/74
--- NOTE | 2024-04-04 13:23 | ANESTHESIA POST OP EVALUATION ---
Anesthesia Post Eval - Post Anesthesia Eval Vitals: Last Vital Signs Temp 36 C L 04/04/24 10:47 Pulse 70 04/04/24 10:47 Resp 16 04/04/24 10:47 BP 111/74 04/04/24 10:47 Pulse Ox 99 04/04/24 10:47 O2 Flow Rate CV Function Including HR & BP: Stable Pain Control: Satisfactory Nausea & Vomiting: Negative Mental Status: Baseline Respiratory Status: Airway Patent Hydration Status: Satisfactory Anesthesia Complications: None
== END 2024-04-04 07:27 | disposition home or self-care (01) ==
LOC: SDS 07:26
PROVIDERS: ATTEND Surgery
PROC: 0DB68ZX Excision of Stomach, Via Natural or Artificial Opening Endoscopic, Diagnostic (ICD-10-PCS; 2024-04-04)
PROC: 0DB28ZX Excision of Middle Esophagus, Via Natural or Artificial Opening Endoscopic, Diagnostic (ICD-10-PCS; principal; 2024-04-04 08:30)
DX: K31.7 Polyp of stomach and duodenum (principal); K22.89 Other specified disease of esophagus; I25.10 Atherosclerotic heart disease of native coronary artery without angina pectoris; I48.91 Unspecified atrial fibrillation; J45.909 Unspecified asthma, uncomplicated; Z79.01 Long term (current) use of anticoagulants
CPT/HCPCS: 43239; J7120

== ENCOUNTER 2024-04-25 16:20 | Outpatient (CLI) | payer MEDICAID ==
--- NOTE | 2024-04-28 02:44 | XRAY Report ---
PROCEDURE: Chest 2V INDICATIONS: SOA TECHNIQUE: 2 views of the chest were acquired. COMPARISON: 02/20/2024. FINDINGS: Surgical changes and devices: Left chest wall pacemaker leads are in the region of right atrium, rig ht ventricle and left ventricle. Median sternotomy wires also seen. Lungs and pleura: Small right pleural effusion is seen with blunting of right costophrenic angle inc reased compared to previous study. No significant left-sided pleural effusion is seen on the current study. Small infiltrate versus atelectasis at right lung base is seen. No pneumothorax. Mediastinum: Mediastinal contours appear normal. Heart size is normal. Bones and chest wall: No suspicious bony lesions. Overlying soft tissues appear unremarkable. IMPRESSION: Small right pleural effusion and right basilar small infiltrate/atelectasis. No pneumothorax. Left isiah ng is clear. Reviewed by: Jai Vidales MD on 04/28/2024 2:42 AM PDT Approved by: Jai Vidales MD on 04/28/2024 2:42 AM PDT Station ID: [id number]
== END 2024-04-25 16:21 | disposition home or self-care (01) ==
LOC: DI 16:20
PROVIDERS: ATTEND Nurse Practitioner Family
DX: R91.8 Other nonspecific abnormal finding of lung field (principal); J90 Pleural effusion, not elsewhere classified